=== PATIENT | male | born 1950 | race Caucasian/White ===

== ENCOUNTER → 2016-10-11 | Day surgery (SDC) | payer MEDICARE, MEDICAID ==
--- NOTE | 2016-10-10 17:10 | Pre-Procedure Note/Attestation ---
Pre-Procedure Note/Attestation Complete Prior to Procedure Planned Procedure: right Procedure Narrative: Rt great toe cheilectomy and resection of bunion Indications for Procedure Pre-Operative Diagnosis: Rt great toe pain Attestation I attest that I discussed the nature of the procedure; its benefits; risks and complications; and alternatives (and the risks and benefits of such alternatives ), prior to the procedure, with the patient (or the patient's legal insurance follow up representative). I attest that, if there was a reasonable possibility of needing a blood transfusion, the patient (or the patient's legal insurance follow up representative) was given the [facility] standardized written summary, pursuant to the [place] Blood Safety Act ([place] Health and Safety Code # 1645, as amended). I attest that I re-evaluated the patient just prior to the surgery and that there has been no change in the patient's H&P, except as documented below: NONE JOSE A HAY Oct 10, 2016 17:10
[2016-10-11] VITALS (18 sets, daily range): BP systolic 104–149; BP diastolic 63–95
[~2016-10-11] VITALS: Ht 172.7 cm; Wt 70.3 kg
[~2016-10-11] MED LIST: ACETAMINOPHEN-1 EAC1 ORAL; ANTIBIOTIC PO; Bacitracin 50000 Units Vial ONE; Bupivacaine 0.5% Inj 30 ml vial INJ ONE; Bupivacaine w/Epi 0.25% 30ml Vial INJ ONE; CYCLOBENZAPRINE10 MG ORAL; D5 1/2NS 1,000 ML IV SCH; DiphenhydrAMINE 50mg/ml Inj IVP PRN; HORMONE MED PO; HYDROmorphone 1mg/ml Carpuject SUBQ PRN; IBUPROFEN600 MG ORAL; LR 1000ml 1,000 ML IVLG SCH; LR 1000ml ONE; Labetalol 5mg/ml 20ml vial IV PRN; Lidocaine 1% MPF 10mg/ml 5ml ONE; Lidocaine 1% Plain 30 ml INJ ONE; Midazolam 2mg/2ml Inj ONE; NS Irrig 1000ml ONE; Norco 5mg/325mg tab ORAL PRN; Propofol 10mg/ml 20ml IV ONE; Ropivacaine 5mg/ml Vial 20ml INJ ONE; Sterile Water Irrig 1000ml IRRIG ONE; TRAMADOL HCL50 MG ORAL; Tylenol #3 tab (300mg/30mg) ORAL PRN; ceFAZolin 1gm/50ml Premix 50 ML IV ONE; celeBREX 200mg Cap **SURGERY PATIENTS ONLY ORAL ONE; fentaNYL 100 mcg/2 mL IV ONE; fentaNYL 100 mcg/2 mL IV PRN; oxyCONTIN 20mg tab ORAL ONE
--- NOTE | 2016-10-11 10:41 | Anethesia Preoperative Eval ---
Anesthesia Pre-op PMH/ROS General Date of Evaluation: Oct 11, 2016 Anesthesiologist: Sanjeev ASA Score: ASA 3 Mallampati Score Class I : Soft palate, uvula, fauces, pillars visible Class II: Soft palate, uvula, fauces visible Class III: Soft palate, base of uvula visible Class IV: Only hard plate visible Mallampati Classification: Class II Surgeon: Nadine Diagnosis: Right bunion Surgical Procedure: Right cheilectomy, bunionectomy Anesthesia History: none Family History: no anesthesia problems Allergies: Coded Allergies: TETANUS VACCINES AND TOXOID (Verified Allergy, Severe, swelling all over his body, 10/11/16) Medications: see eMAR Past Medical History Cardiovascular: Reports: HTN, other - HLD, Denies: CAD, GA, arrhythmia, valve dz Pulmonary: Denies: COPD, SORAIDA, asthma, other Gastrointestinal/Genitourinary: Denies: CRI, ESRD, GERD, other Neurologic/Psychiatric: Denies: CVA, TIA, dementia, depression/anxiety, other Endocrine: Denies: DM, hypothyroidism, other, steroids HEENT: Denies: COQU[place]LE (L), [place] (R), cataract (L), cataract (R), glaucoma, other Hematology/Immune: Reports: other - prostate Cancer, Denies: DVT, anemia, bleeding disorder Musculoskeletal/Integumentary: Reports: OA, Denies: DDD, DJD, RA, edema, other PSxH Narrative: TURP, Left knee arthroscopy, Left foot bunionectomy, right foot sx Anesthesia Pre-op Phys. Exam Physician Exam Last Vital Signs Date Time Temp Pulse Resp B/P Pulse Ox O2 Delivery O2 Flow Rate FiO2 10/11/16 10:24 97.6 72 19 114/75 99 Room Air Constitutional: NAD Cardiovascular: RRR Respiratory: CTA Airway Exam Mallampati Score: Class II MO: full ROM: full Teeth: intact Anesthesia Pre-op A/P Labs see chart Studies Pre-op Studies: EKG - sr Risk Assessment & Plan Assessment: ASA III Plan: GA Status Change Before Surgery: No Pre-Antibiotics Drug: Ancef 1g Given Within 1 Hr of Incision: Yes Time Given: 13:35 SANJUANA MENESES M.D. Oct 11, 2016 10:41
--- NOTE | 2016-10-11 13:50 | 48 Hour Post Anesthesia Eval ---
Post Anesthesia Evaluation Procedure: Right foot cheilectomy, bunionectomy Date of Evaluation: Oct 11, 2016 Blood Pressure Systolic: 106 0: 65 Pulse Rate: 69 Respiratory Rate: 17 O2 Sat by Pulse Oximetry: 100 Airway: patent Nausea: No Vomiting: No Pain Intensity: 0 Hydration Status: adequate Cardiopulmonary Status: at baseline Mental Status/LOC: patient returned to baseline Post-Anesthesia Complications: 0 Follow-up care needed: ready to discharge SANJUANA MENESES M.D. Oct 11, 2016 13:50
--- NOTE | 2016-10-11 13:50 | Immediate Post-Op Evaluation ---
Immediate Post-Op Evalulation Immediate Post-Op Evalulation Procedure: Right foot cheilectomy, bunionectomy Date of Evaluation: Oct 11, 2016 Time of Evaluation: 15:13 IV Fluids: 700 Blood Products: 0 Estimated Blood Loss: 0 Urinary Output: 0 Blood Pressure Systolic: 111 Blood Pressure Diastolic: 63 Pulse Rate: 66 Respiratory Rate: 17 O2 Sat by Pulse Oximetry: 99 Temperature (Fahrenheit): 97 Pain Score (1-10): 0 Nausea: No Vomiting: No Complications 0 Patient Status: awake, reacts, patent, none Hydration Status: adequate Drug: Ancef 1g Given Within 1 Hr of Incision: Yes Time Given: 13:35 SANJUANA MENESES M.D. Oct 11, 2016 13:50
--- NOTE | 2016-10-11 15:06 | Brief Operative Note ---
Immediate Post Operative Note Operative Note Chief Complaint: rt foot pain Pre-op Diagnosis: rt foot pain Procedure: rt great toe cheilectomy and resection of bunion Post-op Diagnosis: same as pre-op Findings: consistent w/pre-op dx studies Surgeon: md shameka Shell Maker Lockstitch: kamar cui Anesthesiologist: md lashon Anesthesia: general Specimen: yes Complications: none Condition: stable Estimated Blood Loss: minimal Drains: none Implant(s) used?: No MAIRA CUI Oct 11, 2016 15:06
--- NOTE | 2016-10-11 15:35 | Diagnostic Imaging Report ---
Indication: Pain Comparison: None Findings: Multiple fluoroscopic obtained images of the right foot showing bunionectomy in the area the first MTP joint. Impression: Intraoperative imaging
[2016-10-11] MEDS: Hydromorphone 0.5mg/0.5ml inj IVP PRN ×2 (15:56→16:11)
--- NOTE | 2016-10-11 22:37 | Operative Note - Dictated ---
DATE OF OPERATION: 10/11/2016 PREOPERATIVE DIAGNOSES: 1. Right great toe hallux rigidus. 2. Right great toe bunion with normal intermetatarsal angle measuring approximately 20 degrees. PROCEDURE: 1. Right great toe cheilectomy and resection of large anterior osteophyte from metatarsal head and corresponding proximal phalanx. 2. Right foot bunionectomy with excision of the medial metatarsal overgrowth and medial reefing of the capsule. 3. Debridement of the metatarsophalangeal joint with irrigation and resection of debrie SURGEON: Doc Mccoy M.D. WASHER AND [employer]PER MACHINE OPERATOR: Kasandra Keith PA-C. ANESTHESIOLOGIST: Dr. Bautista. ANESTHESIA: General LMA anesthesia. ESTIMATED BLOOD LOSS: Less than 20 mL. COMPLICATIONS: None. BRIEF HISTORY: The patient is a pleasant 66-year-old gentleman, who is active. He has noticed that he cannot dorsiflex his foot and has hallux rigidus. He has also had deformity of his great toe and was unable to wear normal shoes. This is painful as well. He had hard time getting around. He had a hard time with shoe wear. After full discussion of the risks and benefits of the surgery and complications associated with it including infection, bleeding, neurovascular complication, possibility of neuroma, possibility of continued pain despite all treatments and instability of the joint, he opted for surgical treatment as described above. OPERATIVE PROCEDURE: The patient was brought to the operating room table and was placed supine. All pressure points well padded. General LMA anesthesia was induced. The right foot was prepped and draped in the usual sterile fashion. A medial incision was made over the metatarsophalangeal joint. The incision was taken through the subcutaneous tissue and the capsule was divided. Subperiosteal dissection was performed medially and inferiorly. Hohmann retractors were placed in. The neck of the first metatarsal was then exposed and the neck of the proximal phalanx was exposed. On the plantar side, this was exposed as well, but care was given to not to damage the sesamoids or the plantar plate. Once this was completed, a cheilectomy was performed and osteophytes were removed from metatarsal head. There was a small osteophyte on the proximal phalanx, which was removed as well. Medially, a medial bunionectomy was performed to create approximately an 8 to 10 degree normal valgus of the great toe. Wounds were thoroughly irrigated. Image was brought in and bunionectomy and cheilectomy was checked and appeared to be excellent. At this point, all wounds were thoroughly irrigated using copious amount of fluid. The medial capsule was then reefed using #1 Vicryl suture. Subcutaneous tissue was closed using 2-0 Vicryl suture and skin was closed using 3-0 Monocryl suture. Once the capsule was closed using image intensifier, the stability of the joint was checked and appeared to be perfect and excellent. Wounds were thoroughly irrigated using copious amount of fluid. Sterile dressing was applied. The patient was placed in a splint and was taken to the recovery room in stable condition. Doc Mccoy M.D. DR: OSMAR JOB#: [id number] CC: [id number]
== END | disposition home or self-care (01) ==
LOC: SUR 09:11
DX: M20.21 Hallux rigidus, right foot (principal); M21.611 Bunion of right foot; I10 Essential (primary) hypertension; E78.5 Hyperlipidemia, unspecified; M19.90 Unspecified osteoarthritis, unspecified site; Z85.46 Personal history of malignant neoplasm of prostate; Z90.79 Acquired absence of other genital organ(s); Z88.7 Allergy status to serum and vaccine
CPT/HCPCS: 28289; 28292; 73660; 76001; 97161; G8978; G8979; G8980; J0690; J1170; J2250; J2405; J2704; J3010; J3490; J7120; 94003; 94150

== ENCOUNTER 2016-11-16 14:30 | Outpatient (RCR) | payer MEDICARE, MEDICAID ==
[~2016-11-16 14:30] MED LIST changes: -Bacitracin 50000 Units Vial ONE; -Bupivacaine 0.5% Inj 30 ml vial INJ ONE; -Bupivacaine w/Epi 0.25% 30ml Vial INJ ONE; -D5 1/2NS 1,000 ML IV SCH; -DiphenhydrAMINE 50mg/ml Inj IVP PRN; -HYDROmorphone 1mg/ml Carpuject SUBQ PRN; -LR 1000ml 1,000 ML IVLG SCH; -LR 1000ml ONE; -Labetalol 5mg/ml 20ml vial IV PRN; -Lidocaine 1% MPF 10mg/ml 5ml ONE; -Lidocaine 1% Plain 30 ml INJ ONE; -Midazolam 2mg/2ml Inj ONE; -NS Irrig 1000ml ONE; -Norco 5mg/325mg tab ORAL PRN; -Propofol 10mg/ml 20ml IV ONE; -Ropivacaine 5mg/ml Vial 20ml INJ ONE; -Sterile Water Irrig 1000ml IRRIG ONE; -Tylenol #3 tab (300mg/30mg) ORAL PRN; -ceFAZolin 1gm/50ml Premix 50 ML IV ONE; -celeBREX 200mg Cap **SURGERY PATIENTS ONLY ORAL ONE; -fentaNYL 100 mcg/2 mL IV ONE; -fentaNYL 100 mcg/2 mL IV PRN; -oxyCONTIN 20mg tab ORAL ONE
== END 2016-11-22 | disposition home or self-care (01) ==
LOC: PTY 14:30
DX: M20.11 Hallux valgus (acquired), right foot (principal)
CPT/HCPCS: 97035; 97110; 97140; 97161; G0283; G8978; G8979

== ENCOUNTER 2016-11-24 08:15 | Outpatient (RCR) | payer MEDICARE, MEDICAID | END 2016-12-23 | disposition home or self-care (01) | LOC: PTY 08:15 | DX: M20.11 Hallux valgus (acquired), right foot (principal) | CPT/HCPCS: 97035; 97110; 97140; G0283; G8978; G8979 ==

== ENCOUNTER 2016-12-28 15:20 | Outpatient (RCR) | payer MEDICARE, MEDICAID | END 2017-01-22 | disposition home or self-care (01) | LOC: PTY 15:20 | DX: M20.11 Hallux valgus (acquired), right foot (principal) ==

== ENCOUNTER 2017-01-27 11:00 | Outpatient (RCR) | payer MEDICARE, MEDICAID | END 2017-02-22 | disposition home or self-care (01) | LOC: PTY 11:00 | DX: M20.11 Hallux valgus (acquired), right foot (principal) ==

== ENCOUNTER 2017-03-16 14:15 | Outpatient (RCR) | payer MEDICARE, MEDICAID | END 2017-03-24 | disposition home or self-care (01) | LOC: PTY 14:15 | DX: M20.11 Hallux valgus (acquired), right foot (principal) | CPT/HCPCS: 97035; 97110; 97140; 97164; G8978; G8979 ==

== ENCOUNTER 2017-03-30 09:30 | Outpatient (RCR) | payer MEDICARE, MEDICAID | END 2017-04-24 | disposition home or self-care (01) | LOC: PTY 09:30 | DX: M20.11 Hallux valgus (acquired), right foot (principal) | CPT/HCPCS: 97035; 97110; 97140; G8978; G8979 ==

== ENCOUNTER 2017-05-10 13:00 | Outpatient (RCR) | payer MEDICARE, MEDICAID | END 2017-05-25 | disposition home or self-care (01) | LOC: PTY 13:00 | DX: M20.11 Hallux valgus (acquired), right foot (principal) | CPT/HCPCS: 97035; 97110; 97140; G8979; G8980 ==

== ENCOUNTER 2017-10-03 11:00 | Outpatient (RCR) | payer MEDICARE, MEDICAID | END 2017-10-25 | disposition home or self-care (01) | LOC: PTY 11:00 | DX: M20.11 Hallux valgus (acquired), right foot (principal) | CPT/HCPCS: 97110; 97140; 97161; G8978; G8979 ==

== ENCOUNTER 2017-11-06 15:00 | Outpatient (RCR) | payer MEDICARE, MEDICAID | END 2017-11-22 | disposition home or self-care (01) | LOC: PTY 15:00 | DX: M20.11 Hallux valgus (acquired), right foot (principal); Z85.46 Personal history of malignant neoplasm of prostate ==